=== PATIENT | female | born 1985 | race Caucasian/White ===

== ENCOUNTER 2018-12-18 08:25 | Emergency (ER) | payer BC ==
[2018-12-18 08:33] VITALS: BP 126/84; PULSE 99; TEMP 98; BMI 32.5
--- NOTE | 2018-12-18 09:00 | PDOC ---
History of Present Illness - General Chief Complaint: Headache Stated Complaint: HEADACHE Time Seen by Provider: 12/18/18 08:48 History Source: Patient Exam Limitations: No Limitations Past History - Travel Traveled outside of the country in the last 30 days: No Close contact w/someone who was outside of country & ill: No - Past Medical History Allergies/Adverse Reactions: Allergies Allergy/AdvReac Type Severity Reaction Status Date / Time No Known Allergies Allergy Verified 10/02/14 23:16 Home Medications: Ambulatory Orders Acetaminophen [Tylenol .Extra-Strength -] 500 mg PO Q6H #20 tablet 10/03/14 Amoxicillin - [Amoxicillin 500mg Capsule -] 500 mg PO TID #21 capsule 10/03/14 Antipyrine-Benzocaine Ear Drop [Auralgan -] 2 drop TID #1 bottle 10/03/14 Ibuprofen [Motrin -] 600 mg PO TID #21 tablet 10/03/14 Ibuprofen 600 mg PO Q6H #30 tablet 12/18/18 Asthma: No Cancer: No Cardiac Disorders: No COPD: No Diabetes: No HTN: No Seizures: No Thyroid Disease: No Other medical history: DENIES - Immunization History Immunization Up to Date: Yes - Suicide/Smoking/Psychosocial Hx Smoking History: Never smoked Have you smoked in the past 12 months: No Hx Alcohol Use: No Drug/Substance Use Hx: No Substance Use Type: None Hx Substance Use Treatment: No Review of Systems - Review of Systems Able to Perform ROS?: Yes Comments:: 12/18/18 08:59 CONSTITUTIONAL: Absent: fever, chills, diaphoresis, generalized weakness, malaise, loss of appetite HEENT: Absent: rhinorrhea, nasal congestion, throat pain, throat swelling, difficulty swallowing, mouth swelling, ear pain, eye pain, visual Changes CARDIOVASCULAR: Absent: chest pain, loss of consciousness, palpitations, irregular heart rate, peripheral edema RESPIRATORY: Absent: cough, shortness of breath, dyspnea with exertion, orthopnea, wheezing, stridor, hemoptysis GASTROINTESTINAL: Absent: abdominal pain, abdominal distension, nausea, vomiting, diarrhea, constipation, melena, hematochezia SKIN: Absent: rash, itching, pallor NEUROLOGIC: Present: headache Absent: focal weakness or paresthesias, dizziness, unsteady gait, seizure, mental status changes, bladder or bowel incontinence PSYCHIATRIC: Absent: anxiety, depression, suicidal or homicidal ideation, hallucinations. Is the patient limited Haitian proficient: No *Physical Exam - Vital Signs Last Vital Signs Temp Pulse Resp BP Pulse Ox 98.0 F 99 H 18 126/84 99 12/18/18 08:31 12/18/18 08:31 12/18/18 08:31 12/18/18 08:31 12/18/18 08:31 - Physical Exam Comments: 12/18/18 08:59 GENERAL: Well developed, well nourished. Awake and alert. No acute distress. HEENT: Normocephalic, atraumatic. PERRLA, EOMI. No conjunctival pallor. Sclera are non- icteric. Moist mucous membranes. Oropharynx is clear. NECK: Supple. Full ROM. No JVD. Carotid pulses 2+ and symmetric, without bruits. No thyromegaly. No lymphadenopathy. CARDIOVASCULAR: Regular rate and rhythm. No murmurs, rubs, or gallops. Distal pulses are 2+ and symmetric. PULMONARY: No evidence of respiratory distress. Lungs clear to auscultation bilaterally. No wheezing, rales or rhonchi. ABDOMINAL: Soft. Non-tender. Non-distended. No rebound or guarding. No organomegaly. Normoactive bowel sounds. MUSCULOSKELETAL Normal range of motion at all joints. No bony deformities or tenderness. No CVA tenderness. EXTREMITIES: No cyanosis. No clubbing. No edema. No calf tenderness. SKIN: Warm and dry. Normal capillary refill. No rashes. No jaundice. NEUROLOGICAL: Alert, awake, appropriate. Cranial nerves 2-12 intact. No deficits to light touch and temperature in face, upper extremities and lower extremities. No motor deficits in the in face, upper extremities and lower extremities. Normoreflexic in the upper and lower extremities. Normal speech. Toes are down- going bilaterally. Gait is normal without ataxia. PSYCHIATRIC: Cooperative. Good eye contact. Appropriate mood and affect. Medical Decision Making - Medical Decision Making 12/18/18 09:58 the patient is a 33-year-old female with no past medical history who presents to the ER for a right-sided headache since 12/15/18. She states that the pain began gradually and got worse over the last 3 days. She is taking Tylenol at home with little relief of her symptoms. She also admits to associated photophobia and nausea. Denies fevers, chills, neck pain, visual changes, gait changes, shortness of breath, chest pain, vomiting and diarrhea, weakness and dizziness. A/P: Headache On exam patient is neurologically intact with no gross deficits. No dysarthria , dysmetria or Pain located to the right side mostly originating in the occipital region Suspect migraine-like headache; low suspicion for subarachnoid at this time as it is not the worst headache of her life or thunderclap like symptoms Defer head CT at this time Reglan, benadryl, IV tylenol given Re-evaluate 12/18/18 11:40 Toradol given (-) Pt reports relief of headache DC home with neuro follow up I discussed the physical exam findings, ancillary test results and final diagnoses with the patient. I answered all of the patient's questions. The patient was satisfied with the care received and felt comfortable with the discharge plan and treatment plan. The Patient agrees to follow up with the primary care physician/specialist within 24-72 hours. Return precautions were given. *DC/Admit/Observation/Transfer Diagnosis at time of Disposition: Headache Qualifiers: Headache type: unspecified Headache chronicity pattern: acute headache Intractability: not intractable Qualified Code(s): R51 - Headache - Discharge Dispostion Disposition: HOME Condition at time of disposition: Stable Decision to Admit order: No - Referrals Referrals: Rashad Millard MD [Staff Physician] - - Patient Instructions Printed Discharge Instructions: DI for Headache Additional Instructions: You were evaluated for your headache today It is most likely a migraine Please take the Motrin 600mg every 6 hours for the next 24 hours. Drink plenty of fluids and get plenty of rest Follow up with your primary care doctor and neurology Return to the ED for worsening headache, fever, neck pain, vomiting or if you have any changes in your symptoms Usted fue evaluado para [place] dolor de xavier hoy Lo ms probable es frank migraa Por favor, tome el Motrin 600mg cada 6 horas ton las prximas 24 horas. Helen mucho lquido y descansa mucho Seguimiento con [place] mdico de atencin primaria y Neurologa Regrese a la ED para empeorar el dolor de xavier, fiebre, dolor de jacek, vmitos o si tiene algn cambio en los sntomas Print Language: ARMENIAN - Post Discharge Activity Forms/Work/School Notes: Back to Work
[2018-12-18] MEDS ORDERED: METOCLOPRAMIDE HCL INJECTION 10 MG/2 ML VIAL IVPUSH ONE (09:16)
[2018-12-18] MEDS ORDERED: SODIUM CHLORIDE 1,000 ML IV STA (09:16)
[2018-12-18] MEDS ORDERED: ACETAMINOPHEN 1000 MG/100 ML VIAL (NON FORMULARY) IVPB ONE (09:17)
[2018-12-18] MEDS ORDERED: METOCLOPRAMIDE HCL INJECTION 10 MG/2 ML VIAL ONE (09:34)
[2018-12-18] MEDS ORDERED: ACETAMINOPHEN INJECTION 100 ML IVPB ONE (09:36)
[2018-12-18] MEDS ORDERED: KETOROLAC TROMETHAMINE 30 MG/1 ML VIAL IVPUSH ONE (11:17)
[2018-12-18] MEDS ORDERED: KETOROLAC TROMETHAMINE 30 MG/1 ML VIAL ONE (11:32)
== END 2018-12-18 11:58 | disposition home or self-care (01) ==
LOC: JERFT 08:25
PROC: 3E033NZ Introduction of Analgesics, Hypnotics, Sedatives into Peripheral Vein, Percutaneous Approach (ICD-10-PCS; principal; 2018-12-18)
PROC: 3E0333Z Introduction of Anti-inflammatory into Peripheral Vein, Percutaneous Approach (ICD-10-PCS; 2018-12-18)
PROC: 3E033GC Introduction of Other Therapeutic Substance into Peripheral Vein, Percutaneous Approach (ICD-10-PCS; 2018-12-18)
PROC: 3E0337Z Introduction of Electrolytic and Water Balance Substance into Peripheral Vein, Percutaneous Approach (ICD-10-PCS; 2018-12-18)
DX: R51 Headache (principal)
CPT/HCPCS: 84703; 99281-25; J0131; J7030

== ENCOUNTER 2019-01-09 07:46 | Emergency (ER) | payer BC ==
[2019-01-09 08:02] VITALS: BP 104/59; PULSE 82; TEMP 98.6; BMI 30.5
[2019-01-09] MEDS ORDERED: IBUPROFEN 400 MG TABLET (FP) PO ONE ×2 (08:22→08:24)
--- NOTE | 2019-01-09 08:22 | PDOC ---
History of Present Illness - General Chief Complaint: Back Pain Stated Complaint: FALL,RT SIDE INJURY Time Seen by Provider: 01/09/19 08:15 History Source: Patient Exam Limitations: No Limitations - History of Present Illness Initial Comments: 01/09/19 08:15 slipped on wet stairs this AM falling onto left buttock and pelvis. Has severe pain to left side- buttock and hip. 01/09/19 08:25 Occurred: reports: yesterday Severity: reports: moderate Pain Location: reports: back, pelvis Method of Injury: Yes: direct blow, fall Modifying Factors: improves with: None Past History - Travel Traveled outside of the country in the last 30 days: No Close contact w/someone who was outside of country & ill: No - Past Medical History Allergies/Adverse Reactions: Allergies Allergy/AdvReac Type Severity Reaction Status Date / Time No Known Allergies Allergy Verified 10/02/14 23:16 Home Medications: Ambulatory Orders Oxycodone HCl/Acetaminophen [Percocet 5-325 mg Tablet -] 1 - 2 tab PO Q4H PRN # 10 tablet MDD 6 01/09/19 Asthma: No Cancer: No Cardiac Disorders: No COPD: No Diabetes: No HTN: No Seizures: No Thyroid Disease: No - Immunization History Immunization Up to Date: No - Suicide/Smoking/Psychosocial Hx Smoking History: Never smoked Have you smoked in the past 12 months: No Hx Alcohol Use: No Drug/Substance Use Hx: No Substance Use Type: None Hx Substance Use Treatment: No Review of Systems - Review of Systems Able to Perform ROS?: Yes Is the patient limited Belarusian proficient: Yes Constitutional: Yes: Symptoms Reported, See HPI, Malaise. No: Fever HEENTM: Yes: See HPI. No: Symptoms Reported Respiratory: No: Symptoms reported Cardiac (ROS): No: Symptoms Reported Musculoskeletal: Yes: Symptoms Reported, See HPI, Back Pain Neurological: Yes: See HPI. No: Symptoms reported, Headache All Other Systems: Reviewed and Negative *Physical Exam - Vital Signs Last Vital Signs Temp Pulse Resp BP Pulse Ox 98.6 F 82 18 104/59 L 97 01/09/19 07:49 01/09/19 07:49 01/09/19 07:49 01/09/19 07:49 01/09/19 07:49 - Physical Exam General Appearance: Yes: Nourished, Appropriately Dressed, Apparent Distress, Moderate Distress (tearful) HEENT: positive: BLAIRE, Normal ENT Inspection, TMs Normal, Pharynx Normal Neck: positive: Supple Respiratory/Chest: positive: Lungs Clear Gastrointestinal/Abdominal: positive: Soft. negative: Tender Musculoskeletal: positive: Decreased Range of Motion, Vertebral Tenderness ( with pain and exquisite tenderness to left buttock with swelling - unable to check pelvis due to guarding and pain . Is ambulatory but slowly due to severe pain. ), Other. 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 NML intact, Fully Oriented, Alert, Normal Mood/ Affect, Normal Response *DC/Admit/Observation/Transfer Diagnosis at time of Disposition: Back pain Qualifiers: Back pain location: low back pain Chronicity: acute Back pain laterality: left Sciatica presence: without sciatica Qualified Code(s): M54.5 - Low back pain Contusion Qualifiers: Encounter type: initial encounter Contusion area: pelvic area Qualified Code(s) : S30.0XXA - Contusion of lower back and pelvis, initial encounter - Discharge Dispostion Disposition: HOME Condition at time of disposition: Stable Decision to Admit order: No - Referrals Referrals: Brenda Huber MD [Primary Care Provider] - - Patient Instructions Printed Discharge Instructions: DI for Low Back Pain Additional Instructions: Rest, ice to area on and off for 15 minutes 4-6 times a day Avoid heavy lifting or exercise until pain and swelling is resolved or until further directed Keep area highly elevated to reduce swelling Followup with orthopedist in one to 2 days if not improving, if significantly improved may wait one week for followup with orthopedist May use ibuprofen every 6 hours as needed for pain May use one half to one tablet of Percocet every 6 hours for severe pain, understanding whelming dizzy and sleepy - Post Discharge Activity Forms/Work/School Notes: Back to Work
== END 2019-01-09 09:08 | disposition home or self-care (01) ==
LOC: JERFT 07:46 → JER 07:46 → JERFT 09:08
DX: S30.0XXA Contusion of lower back and pelvis, initial encounter (principal); W10.8XXA Fall (on) (from) other stairs and steps, initial encounter; Y93.89 Activity, other specified; Y92.89 Other specified places as the place of occurrence of the external cause; Y99.8 Other external cause status
CPT/HCPCS: 73523-TC-FY; 99281-25